=== PATIENT | female | born 1960 | race Caucasian/White ===

== ENCOUNTER 2021-06-21 15:50 | Outpatient (CLI) | payer OTHER, SELFPAY ==
--- NOTE | 2021-06-21 16:05 | XR_ITS ---
WS: [id number] SCREENING DEXA SCAN [employer] CLINICAL INFORMATION: OSTEOPOROSIS COMPARISON: None. FINDINGS: The L1-L4 bone mineral density measures 1.180 g/cm2. This corresponds to a T score score of 0.0 and Z score of 0.7. Left femoral neck bone mineral density measures 1.054 g/cm2. This corresponds to a T score of 0.4 and Z score of 1.0. Right femoral neck bone mineral density measures 1.079 g/cm2. This corresponds to a T score 0.6of and Z score of 1.2. Mean femoral neck bone mineral density measures 1.067 g/cm2. This corresponds to a T score of 0.5 and Z score of 1.1. XR/XR DEXA axial skeleton* 70419 IMPRESSION: Normal bone mineralization. Patient's FRAX calculated 10 year probability for major osteoporotic fracture i s 11.6 % and osteoporotic hip fracture is 0.6%.
== END 2021-06-21 15:51 | disposition home or self-care (01) ==
PROVIDERS: PCP Family Medicine; Visit Provider Family Medicine
DX: M81.0 Age-related osteoporosis without current pathological fracture (principal)
CPT/HCPCS: 77080

== ENCOUNTER 2021-07-02 06:43 | Day surgery (SDC) | payer OTHER, SELFPAY ==
[2021-07-01 07:27] VITALS: BMI 30.2
--- NOTE | 2021-07-02 06:54 | ANES.PREANE2 ---
Pre-Anesthetic Assessment Pre-Anesthetic Assessment: Height/Weight: Height 1.59 m Weight 76.204 kg Preop Diagnosis: screening Proposed Procedure: Operation Date: 07/02/21 08:00 Proposed Procedures p Colonoscopy with poss biopsy poss polpectomy 13320 Z12.11(Not Applicable) - Phi Flores MD Familial anesthetic complications: none Was Beta Khanh taken within 24 hours: N/A Was Clonidine taken within 24 hours: N/A Last intake: > 8 hrs Social: Social History: No alcohol and No tobacco Exam: Pre-Anes Outpt Exam: alert, oriented x 3, clear to auscultation bilaterally and regular rate & rhythm Airway: Cervical ROM: WNL MP: 2 Dentition: Chipped and Other (crown) Anesthetic Plan: ASA status: 1 Anesthesia: MAC Risk of > 500 ml blood loss (7ml/kg in children): No PFSH Anesthesia PFSH: Family History (Updated 07/01/21 @ 07:27 by Kim Villanueva RN) Son Osteosarcoma Diabetes type I Mother Stomach cancer Depression Hypertension Diabetes type 2, controlled Father Lymphoma Hypertension Son No problems noted. Daughter Diabetes type I Social History (Updated 07/01/21 @ 07:27 by Kim Villanueva RN) Smoking and tobacco status: never smoked Alcohol intake: current Current occupational status: employed Data Anesthesia Cardiac Studies: No Data to Display
[2021-07-02 07:10] VITALS: BP 134/82; PULSE 73; RESP 18; TEMP 36.2; O2SAT 100
[2021-07-02] MEDS: sodium chloride 0.9% 1,000 ML 30 ML IV (07:25)
--- NOTE | 2021-07-02 08:24 | P.HP_ITS ---
Providers/Chief Complaint Admitting Physician: Phi Flores Primary Care Provider: Phi Flores MD Chief Complaint: colonoscopy History of Present Illness Neeta Smith is a 61 year old female who presents for a screening colonoscopy. She has no family history or any other increased risk factors. Review of Systems 2 General: Reports: 10 or more systems reviewed and unremarkable except in HPI and below Const: Denies: fever(s) Card: Denies: chest pain or irregular heart rhythm Resp: Denies: dyspnea Medications/Allergies Home Medications Medication Instructions Recorded Confirmed Last Taken Type calcium-magnesium [Calcium And 1 tab PO DAILY 07/01/21 07/02/21 07/01/21 History Magnesium] cetirizine [Zyrtec] 10 mg PO DAILY PRN 07/01/21 07/02/21 07/01/21 History coenzyme Q10 [CoQ-10] 100 mg PO DAILY 07/01/21 07/02/21 07/01/21 History omega-3 fatty acids-fish oil 1 cap PO DAILY 07/01/21 07/02/21 07/01/21 History [[place] 3 Fish Oil] dooxjxa-oslp-jfbiz-oreg-capryl 1 cap PO DAILY 07/01/21 07/02/21 07/01/21 History Allergies Allergy/AdvReac Type Severity Reaction Status Date / Time Penicillins Allergy ALGY-Rash Verified 07/01/21 07:21 Sulfa (Sulfonamide Allergy ALGY-Difficulty Verified 07/01/21 07:21 Antibiotics) Breathing PFSH PFSH: Family History Son Osteosarcoma Diabetes type I Mother Stomach cancer Depression Hypertension Diabetes type 2, controlled Father Lymphoma Hypertension Son No problems noted. Daughter Diabetes type I Social History Smoking and tobacco status: never smoked Alcohol intake: current Current occupational status: employed Vital Signs Vitals Signs: Last Vital Signs Temp 97.1 F L 07/02/21 07:10 Pulse 73 07/02/21 07:10 Resp 18 07/02/21 07:10 BP 134/82 07/02/21 07:10 Pulse Ox 100 07/02/21 07:10 Weight: Weight last 48 hrs Weight 168 lb Physical Exam Const: COMMON NORMALS: no acute distress and patient oriented x3 GENERAL APPEARANCE: cooperative, comfortable and well developed HENMT: COMMON NORMALS: normocephalic and moist oral mucous membranes HEAD & SCALP: normocephalic Chest: COMMONS NORMALS: normal inspection of the chest Resp: COMMON NORMALS: normal respiratory effort and clear to auscultation bilaterally AUSCULTATION: clear to auscultation bilaterally Cardio: COMMON NORMALS: regular rate, regular rhythm, No gallops present (Cardio), No murmurs present (Cardio) and No rub (Cardio) RATE: regular rate RHYTHM: regular rhythm Extremity: COMMON NORMALS: normal to inspection Neuro: COMMON NORMALS: patient oriented x3 and no focal motor deficits Skin: COMMON NORMALS: no rashes or lesions noted GENERAL SKIN EXAM: no rashes or lesions noted A&P Assessment and plan (1) Encounter for screening colonoscopy: The risks have been discussed with the patient including bleeding, and perforation. She has no further questions and wishes to proceed. Status: Acute Coding Level of Care Code Acute Button Sawyer for Shmuel Fwd Diagnoses Encounter for screening colonoscopy Z12.11
[2021-07-02 08:58] VITALS: BP 98/62; PULSE 83; RESP 16; TEMP 36.2; O2SAT 97
--- NOTE | 2021-07-02 17:26 | ANE.PACU2 ---
Inpatient post-anesthesia follow up: Airway intact: Yes Vital signs: Temperature 97.1 F Pulse Rate 83 Respiratory Rate 16 Blood Pressure 98/62 Pulse Oximetry 97 Oxygen Delivery Me thod Room Air Oxygen Flow Rate Fraction of Inspir ed Oxygen Hydration adequate: Yes Nausea and vomiting: No Pain level: 1 Mental status: Baseline
== END 2021-07-02 09:59 | disposition home or self-care (01) ==
PROVIDERS: PCP Family Medicine; Visit Provider Family Medicine
PROC: 0DJD8ZZ Inspection of Lower Intestinal Tract, Via Natural or Artificial Opening Endoscopic (ICD-10-PCS; CPT 45378; principal; 2021-07-02 08:00)
DX: Z12.11 Encounter for screening for malignant neoplasm of colon (principal)
CPT/HCPCS: 12345; 45378; 96360; 96361; J2704; J7030

== ENCOUNTER 2021-08-10 15:25 | Outpatient (CLI) | payer OTHER, SELFPAY ==
--- NOTE | 2021-08-10 15:32 | MM_ITS ---
WS: [id number] BILATERAL DIGITAL SCREENING MAMMOGRAPHY WITH CAD CLINICAL INFORMATION: SCREENING HISTORY: Screening mammogram. No current complaints. COMPARISON: TECHNIQUE: Bilateral CC and MLO views. FINDINGS: Scattered fibroglandular densities bilaterally. No suspicious focal mass, asymmetry, calcifications, or architectural distortion. No evidence of malignancy. MM/[place] [id number] IMPRESSION: BI-RADS: 1-Negative FOLLOW UP: 1 Year Follow-up Recommend return to annual screening mammography.
== END 2021-08-10 15:26 | disposition home or self-care (01) ==
LOC: RADSHAW 15:30
PROVIDERS: PCP Family Medicine; Visit Provider Family Medicine
DX: Z12.31 Encounter for screening mammogram for malignant neoplasm of breast (principal)
CPT/HCPCS: 77067

== ENCOUNTER → 2023-06-24 12:31 | Outpatient (BNVA) | payer OTHER, SELFPAY | PROVIDERS: PCP Family Medicine; Visit Provider Family Medicine | DX: R39.15 Urgency of urination (principal) | CPT/HCPCS: 81000 ==

== ENCOUNTER → 2023-09-20 15:44 | Outpatient (BNVA) | payer OTHER, SELFPAY | PROVIDERS: PCP Family Medicine; Visit Provider Nurse Practitioner | DX: M17.12 Unilateral primary osteoarthritis, left knee; W19.XXXA Unspecified fall, initial encounter | CPT/HCPCS: 20610; 73562; 99204; J1040; J2795; J3301 ==

== ENCOUNTER 2023-10-04 06:00 | Outpatient (CLI) | payer OTHER, SELFPAY | END 2023-10-04 06:01 | LOC: SPT 10-05 10:52 | PROVIDERS: Visit Provider Nurse Practitioner | DX: Z46.89 Encounter for fitting and adjustment of other specified devices (principal); M17.12 Unilateral primary osteoarthritis, left knee | CPT/HCPCS: 97760; L1851 ==

== ENCOUNTER → 2023-12-22 08:37 | Outpatient (BNVA) | payer OTHER, SELFPAY | PROVIDERS: PCP Registered Nurse; Visit Provider Specialist | DX: M17.12 Unilateral primary osteoarthritis, left knee (principal) | CPT/HCPCS: 99213 ==

== ENCOUNTER → 2024-01-24 08:22 | Outpatient (BNVA) | payer OTHER, SELFPAY | PROVIDERS: PCP Registered Nurse; Visit Provider Specialist | DX: M17.12 Unilateral primary osteoarthritis, left knee (principal) | CPT/HCPCS: 73560; 73565; 80053; 81003; 85025; 99213 ==

== ENCOUNTER 2024-01-30 10:11 | Outpatient (CLI) | payer OTHER, SELFPAY ==
--- NOTE | 2024-01-30 11:00 | CT_ITS ---
WS: [id number] CT LEFT KNEE, NONCONTRAST TECHNIQUE: Noncontrast CT of the LEFT knee to include the LEFT hip and ankle SHER. CLINICAL INFORMATION: pre-surgery planning COMPARISON: Radiograph 01/24/2024 DLP: 966.[address] scans at [facility] use at least one of these dose optimization techniques: automated e xposure control; mA and/or kV adjustment per patient size (includes targeted exams where dose is matc hed to clinical indication); or iterative reconstruction. FINDINGS: Advanced tricompartment arthritis LEFT knee worse in the medial joint compartment with [id number] a rticulation and slight subchondral sclerosis. Hypertrophic changes along the joint line. Hypertrophic patella. Small popliteal cyst A few sigmoid diverticuli. Moderate degenerative arthritis sacroiliac joints. Postoperative changes fixation distal fibula and lateral malleolus. 2 screws extending into the dista l tibia. Fracture of the more distal fixation screw without displacement. CT/CT knee LT SHER [id number] IMPRESSION: Fracture of the more distal tibial fixation screw without displacement. This ap pears new since the radiograph 2013. Images obtained for preoperative purposes.
== END 2024-01-30 10:12 | disposition home or self-care (01) ==
LOC: RAD 10:11
PROVIDERS: PCP Registered Nurse; Visit Provider Specialist
DX: Z01.818 Encounter for other preprocedural examination (principal); M17.12 Unilateral primary osteoarthritis, left knee
CPT/HCPCS: 73700

== ENCOUNTER 2024-02-06 12:01 | Observation (INO) | payer OTHER, SELFPAY ==
[2024-02-06] VITALS (15 sets, daily range): BP systolic 105–149; BP diastolic 62–85; PULSE 53–86; RESP 16–20; TEMP 36.2–36.9; O2SAT 93–100; BMI 32.0
[2024-02-06] MEDS: sodium chloride 0.9% 1,000 ML 30 ML IV (06:50)
[2024-02-06] MEDS: acetaminophen 1,000 MG/100 ML PIGGYBACK 400 MG IV ×3 (06:50→21:19)
[2024-02-06] MEDS: gabapentin 300 mg Capsule PO (06:55)
--- NOTE | 2024-02-06 06:58 | P.HPUD_ITS ---
Surgery/Procedure H&P Update DATE OF PROCEDURE: February 06, 2024 DATE H&P PERFORMED: 01/30/24 H&P UPDATE INFORMATION: I have reviewed H&P completed within last 30 days, I have examined patient prior to procedure, No changes to prior documentation and H&P is in [facility] [place] [facility] EMR on date indicated PLANNED PROCEDURE: Operation Date: 02/06/24 08:00 Proposed Procedures p Randall Robot Total Knee Arthroplasty(Left) - Veena Stuart MD Related Problem List Diagnoses (1) Primary osteoarthritis of left knee:
--- NOTE | 2024-02-06 07:30 | ANES.PREANE2 ---
Pre-Anesthetic Assessment Height/Weight: Height 1.57 m Weight 79.379 kg Temp Pulse Resp BP Pulse Ox O2 Del Method 98.4 F 73 18 149/85 96 Room Air 02/06/24 07:14 02/06/24 07:14 02/06/24 07:14 02/06/24 07:14 02/06/24 07:14 02/06/24 07:15 Operation Date: 02/06/24 08:00 Proposed Procedures p Randall Robot Total Knee Arthroplasty(Left) - Veena Stuart MD Familial anesthetic complications: none Was Beta Khnah taken within 24 hours: N/A Was Clonidine taken within 24 hours: N/A Last intake: Intake Last Liquid Date 02/05/24 Last Liquid Time 22:00 Last Solid Date 02/05/24 Last Solid Time 18:00 Social No alcohol Exam alert, oriented x 3, clear to auscultation bilaterally and regular rate & rhythm Airway Submandibular: within normal limits Cervical ROM: within normal limits Mallampati: Class II Dentition: full Musc/skel Osteoarthritis/DJD Anesthetic Plan ASA status: 2 Anesthesia: Regional (specify below) (SAB with left adductor blk) Medications/Allergies Home Medications Medication Instructions Recorded Confirmed Last Taken Type calcium-magnesium 750 mg-465 mg 1 tab PO DAILY 07/01/21 02/05/24 02/02/24 History tablet cetirizine 10 mg tablet (Zyrtec) 10 mg PO DAILY PRN ALLERGIES 07/01/21 02/05/24 02/05/24 History coenzyme Q10 100 mg capsule 100 mg PO DAILY 07/01/21 02/05/24 01/29/24 History (CoQ-10) omega-3 fatty acids-fish oil 684 1 cap PO DAILY 07/01/21 02/05/24 01/29/24 History mg-1,200 mg capsule,delayed release turmeric 100 mg-mariusz 150 1 cap PO DAILY 07/01/21 02/05/24 01/29/24 History mg-olive 50 mg-oreg 150 mg-capryl capsule [employer] Brace #1 ea 09/21/23 01/30/24 Unknown Rx celecoxib 100 mg capsule (Celebrex) 200 mg (2 x 100 mg) PO DAILY #30 01/25/24 02/05/24 01/31/24 Rx caps Allergies Allergy/AdvReac Type Severity Reaction Status Date / Time Penicillins Allergy ALGY-Rash Verified 02/05/24 09:26 Sulfa (Sulfonamide Allergy ALGY-Difficulty Verified 02/05/24 09:26 Antibiotics) Breathing Current Medications Generic Name Dose Route Start Last Admin Trade Name Freq PRN Reason Stop Dose Admin Sodium Chloride 1,000 mls @ 30 mls/hr 02/06/24 06:45 02/06/24 06:50 Sodium Chloride 0.9% IV 02/07/24 06:44 30 mls/hr .Q24H DONNY Administration PFSH Anesthesia Medical History Fall Primary osteoarthritis of left knee Family History Son Osteosarcoma Diabetes mellitus type 1 Mother Stomach cancer Depression Hypertension Diabetes type 2, controlled Father Lymphoma Hypertension Son No problems noted. Daughter Diabetes mellitus type 1 Social History Smoking and tobacco/nicotine status: never used tobacco/nicotine Alcohol intake: current Current occupational status: employed Data Anesthesia Cardiac Studies: No Data to Display
[2024-02-06] MEDS: ceFAZolin 2,000 MG in sodium chloride 0.9% (plus) 50 ML 100 MG IV ×3 (08:28→22:01)
[2024-02-06] MEDS: tranexamic acid 1,000 mg/10mL SDV 1000 MG XX (08:57)
--- NOTE | 2024-02-06 09:03 | ANES.PROC ---
Anesthesia Procedures Procedure/Date: 02/06/24 Nerve Block ^: Nerve Block 1: Main Anesthesia: spinal anesthesia block Time Out Performed: Yes Consent: requested by attending/covering physician, from patient, risks and benefits reviewed and patient agrees to proceed Nerve block location: adductor canal (left) Anesthesia monitors applied: pulse oximetry, EKG, BP cuff and oxygen Nerve block position: supine Anesthetic Used: ropivicaine 0.5% Amount of anesthesia used (mL): 20 Ultrasound used to: recognize landmarks Nerve Stimulator Used?: No Interscalene/Femoral BLK: 4 stimuplex 21 g needle used for position and inplane approach Injection: neg aspiration of heme Patient Tolerated Procedure: well Complications: none
[2024-02-06] MEDS: BUPivacaine 0.5% INJ 30 mL 20 ML INJECTION (09:31)
[2024-02-06] MEDS: BUPivacaine liposome 13.3 mg/mL SDV 10 mL 266 MG INFILTRATI (09:31)
[2024-02-06] MEDS: vancomycin 1,000 MG SDV 3000 MG XX (09:32)
--- NOTE | 2024-02-06 11:14 | XRR_ITS ---
PROCEDURE INFORMATION: Exam: XR Left Knee Exam date and time: 02/06/2024 11:50 AM Age: 63 years old Clinical indication: Device placement; Joint replacement hardware; Prior surgery; Surgery date: Post-operative (0-2 days); Surgery type: Left total knee arthroplasty; Additional info: Status post left total knee arthroplasty, patient in pacu TECHNIQUE: Imaging protocol: Radiologic exam of the left knee. Views: 1 or 2 views. COMPARISON: CT knee LT SHER [id number] 01/30/2024 11:25 AM FINDINGS: Bones/joints: Patient has since undergone placement of left total knee prosthesis that appears in satisfactory position. Bone metal interface is unremarkable. There is no periprosthetic fracture. Remaining visualized osseous structures are unremarkable. Soft tissues: There is generalized soft tissue swelling with air in the soft tissues and overlying surgical radha along the skin surface consistent with recent surgery. XR/XR knee LT 1-2V [id number] IMPRESSION: Recent left total knee replacement in satisfactory position.
--- NOTE | 2024-02-06 11:29 | PM.OP ---
Operative Report Date of procedure: February 06, 2024 Pre-op diagnosis: Severe degenerative osteoarthritis left knee with varus deformity Post-op diagnosis: Severe degenerative osteoarthritis left knee with varus deformity Post-op findings: Severe degenerative osteoarthritis with complete denudement of cartilage and varus deformity Procedure done: Right total knee arthroplasty with Randall guidance Implants: The Leslye total knee system with a size 3 triathlon beaded cruciate retaining femur left, a triathlon titanium tibial component size 3 beaded, a triathlon X3 tibial bearing CS insert size 3 X 10 mm and a beaded triathlon titanium asymmetric patella size 29 x 9 mm Specimens removed/disposition: Bone, disposed of Surgeon: Veena Stuart MD Criminal Investigative Agent: [facility] operating room technicians Anesthesia: Spinal (With MAC, ASA 2) Estimated blood loss (mL): 50 Tourniquet time (min): 0 (Not utilized) IV fluids (mL): 1,400 Urine output (mL): 100 Complications: None Condition: stable Disposition: PACU (Then to floor for postoperative rehabilitation and pain management) Brief History: This 63-year-old woman was evaluated in the office initially and underwent multiple injection treatments to left knee for severe degenerative osteoarthritis of the left knee. Initially, the patient saw Ethel Mcintosh nurse practitioner and injection therapy was undertaken without difficulty. The patient tolerated it well. She then came to see me approximately 3 months later for consideration of injection therapy, but she wished to have total knee arthroplasty during the summer. She was advised that we would need to hold off on injection therapy so that we could proceed early in the summer months with her knee arthroplasty. Risks and complications were discussed with her. Consents were signed and questions were answered. Procedure: The patient was brought to the operating theater, and after undergoing spinal anesthetic, with MAC and with supplemental adductor canal block, ASA 2, the left lower extremity was prepped with Dura-Prep and draped in usual fashion following placement of a tourniquet high on the leg. The leg was then draped free.? Tourniquet was not elevated during the case.? A surgical pause was performed, and at the time of the surgical pause, we confirmed the site and side of surgery. Additionally, we confirmed the appropriate and timely administration of preoperative antibiotics, Ancef 2 g.? The availability of equipment was confirmed, and the patient's identity was verbalized as well. Following the surgical pause, an incision was made centering over the patella continuing proximally and distally as necessary to allow access to the knee joint. Dissection continued through skin and soft tissues using a scalpel. Hemostasis was obtained using electrocautery. The skin incision was followed by a median parapatellar arthrotomy. The leg was extended and the patella was able to be displaced laterally.? Appropriate arrays and markers were placed in appropriate position for use of the Randall.? Preoperative planning had been accomplished and was discussed in detail with the [facility] medical customer service representative.? Intraoperative mapping of the femur and tibia was accomplished after the arrays were placed.? Internal markers were also placed.? Once we had accomplished the Randall mapping, we began the appropriate resections for placement of the prosthesis.? The plan was for a cruciate retaining right total knee arthroplasty. Once appropriate mapping had been accomplished retraction was established using manual retraction by surgical technicians and also the [facility] leg positioner and retractors.? The knee was evaluated.? There was significant osteoarthritic change as well as very minimal flexion contracture as well as varus deformity.? Appropriate bone resection was accomplished using the Randall.? The femur was sized to a size 3.? Following femoral cuts, attention was directed to the tibia.? Osteophytes were removed prior to this portion of the procedure.? We had performed a minimal medial release at the beginning of the procedure to allow for placement of the array.? Proximal tibia was evaluated, and it was felt that appropriate size for the tibia was a size 3.? Tray was noted to fit nicely with good coverage.? Rim fit was accomplished with the size 3. A trial reduction was accomplished after osteophytes have been removed as well as the medial and lateral menisci.? We had removed the anterior cruciate ligament at the beginning of the case and preserved the posterior cruciate ligament.? Trial reduction was accomplished with a size 3 femoral cruciate retaining component, a size 3 tibial tray and a size 3 CS tibial bearing insert which was 9 mm initially which was increased to 10 mm.? Secondary to the balancing of the knee, we elected to place a 10 mm insert for the actual component. Alignment was felt to be appropriate as well.? Trial components were removed after the femur had been drilled.? Prior to removal of the tibial tray which had been pinned in position with appropriate rotation as determined by the Randall plan, we broached the tibia.? Subsequently, the 4 drill holes were made for the prosthetic component.? All trial components were removed, and the wound was irrigated.? Plans were made for insertion of the prosthetic components.? Prior to this, the patella was manually prepared.? After resection of the articular surface with the jogging system, it was measured and measured a 29 mm patella.? We resected approximately 8 mm of patella.? Patellar height was restored with the patellar component. Once again, the wound was irrigated.? The Tritanium tibia was impacted into position.? The beaded femur was then impacted into position in a cementless fashion. The CS tibial insert was placed prior to placement of the femoral component. The patella was pressed into position with a patellar clamp.? Exparel was injected about the components deep and superficially.? The knee was then copiously irrigated with betadine and saline and suctioned dry. Attention was then directed to closure. Closure was accomplished with 0 Vicryl in the fascial tissues.? The suture line of 0 Vicryl was supplemented with strata fix, #1, with a running stitch from proximal to distal and a second running stitch from distal to proximal.? This was followed by Surgiflo and vancomycin powder.? Following this, a 2-0 Monocryl was used in the subcutaneous tissues, and the skin was closed with 3-0 Strata fix.? Care was taken to assure an excellent subcutaneous as well as skin closure.? A sterile dressing was then placed consisting of Dermabond Prineo, OpSite, ABD, sterile soft roll, and an Josué wrap including over the foot. The patient was returned the Recovery Room in a satisfactory condition. X-rays were obtained and reviewed there.? The patient will be discharged to the floor for postoperative rehabilitation and pain management. Related Problem List Diagnoses (1) Primary osteoarthritis of left knee:
[2024-02-06] MEDS: CELEcoxib 200 mg Capsule PO ×2 (13:06→21:18)
[2024-02-06] MEDS: chlorhexidine gluconate 0.12% Btl 473 mL 30 ML MUCOUS MEM ×3 (13:06→21:20)
--- NOTE | 2024-02-06 14:09 | ANE.PACU2 ---
Inpatient post-anesthesia follow up: Airway intact: Yes Vital signs: Temperature 97.6 F Pulse Rate 86 Respiratory Rate 16 Blood Pressure 131/65 Pulse Oximetry 96 Oxygen Delivery Me thod Room Air Oxygen Flow Rate Fraction of Inspir ed Oxygen Hydration adequate: Yes Nausea and vomiting: No Pain level: 1 Mental status: Baseline
[2024-02-06] MEDS: oxyCODONE 5 mg IR Tab/Cap PO ×2 (14:33→19:16)
[2024-02-06] MEDS: calcium carbonate 500 mg Chew Tablet 1000 MG PO (18:01)
[2024-02-06] MEDS: sennosides-docusate Tablet 2 TAB PO (18:01)
[2024-02-06] MEDS: mupirocin oint 22 gm 1 APPLIC NASAL (18:01)
[2024-02-06] MEDS: iron polysaccharide complex 150 mg Capsule PO (18:01)
[2024-02-06] MEDS: HYDROcodone-acetaminophen 10-325 mg Tablet 1 TAB PO (21:40)
[2024-02-07] MEDS: HYDROcodone-acetaminophen 10-325 mg Tablet 1 TAB PO ×2 (01:41→05:52)
[2024-02-07 04:00] VITALS: BP 124/73; PULSE 77; RESP 17; TEMP 36.6; O2SAT 91
[2024-02-07 06:06] LABS: Anion Gap 12.3 (5-19); Blood Urea Nitrogen 10 mg/dL (8-23); Calcium 8.2 mg/dL (8.5-10.5); Carbon Dioxide 26 mmol/L (22-29); Chloride 98 mmol/L (98-107); Creatinine Clr Calc Pharmacy 123.2922; Glucose 128 mg/dL (65-115); Osmolality Calculated 275 mOsm/kg (285-295); Potassium 4.3 mmol/L (3.5-5.1); Sodium 132 mmol/L (136-145)
[2024-02-07] MEDS: ceFAZolin 2,000 MG in sodium chloride 0.9% (plus) 50 ML 100 MG IV (06:11)
[2024-02-07 06:41] LABS: Basophils % 0.1 %; Eosinophils # 0.1 10^3/uL (0.0-0.8); Eosinophils % 0.8 %; Hematocrit 34.3 % (36-47); Lymphocytes # 0.7 10^3/uL (0.8-4.8); Lymphocytes % 9.7 %; Mean Corpuscular HGB Conc 32.9 g/dL (30-55); Mean Corpuscular Hemoglobin 29.9 pg (27-33); Mean Corpuscular Volume 90.7 fl (85-98); Mean Platelet Volume 9.8 fL (7.4-10.4); Monocytes # 0.6 10^3/uL (0.2-0.9); Monocytes % 7.8 %; Neutrophils # 5.95 10^3/uL (1.8-7.7); Neutrophils % 81.3 %; Nucleated Red Blood Cells % 0 %; Platelet Count 259 10^3/cmm (157-399); Red Blood Count 3.78 10^6/uL (3.85-5.65); White Blood Count 7.32 10^3/uL (3.29-11.43)
[2024-02-07 08:00] VITALS: BP 126/72; PULSE 76; RESP 16; TEMP 36.5; O2SAT 93
[2024-02-07] MEDS: aspirin 325 mg EC Tablet PO (08:45)
[2024-02-07] MEDS: cholecalciferol (vitamin D3) 1,000 unit Tablet 1000 UNIT PO (08:45)
[2024-02-07] MEDS: multivitamin therapeutic Tablet 1 TAB PO (08:45)
[2024-02-07] MEDS: calcium carbonate 500 mg Chew Tablet 1000 MG PO (08:45)
[2024-02-07] MEDS: sennosides-docusate Tablet 2 TAB PO (08:45)
[2024-02-07] MEDS: iron polysaccharide complex 150 mg Capsule PO (08:45)
[2024-02-07] MEDS: CELEcoxib 200 mg Capsule PO (08:47)
[2024-02-07] MEDS: TRAMadol 50 mg Tablet PO (09:35)
[2024-02-07 12:00] VITALS: BP 144/84; PULSE 66; RESP 16; TEMP 36.4; O2SAT 96
--- NOTE | 2024-02-07 13:29 | P.DS_ITS ---
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 using cement: Status: Acute Permanent problem details: Date of procedure: February 06, 2024 Diagnosis: Severe degenerative osteoarthritis left knee with varus deformity Procedure done: Right total knee arthroplasty with Randall guidance Implants: The Leslye total knee system with a size 3 triathlon beaded cruciate retaining femur left, a triathlon titanium tibial component size 3 beaded, a triathlon X3 tibial bearing CS insert size 3 X 10 mm and a beaded triathlon titanium asymmetric patella size 29 x 9 mm (2) Primary osteoarthritis of left knee: Status: Acute Reason for Visit Reason for Visit: M17.12 Brief History: This 63-year-old woman was evaluated in the office initially and underwent multiple injection treatments to left knee for severe degenerative osteoarthritis of the left knee. Initially, the patient saw Ethel Mcintosh, nurse practitioner and injection therapy was undertaken without difficulty. The patient tolerated it well. She then came to see me approximately 3 months later for consideration of injection therapy, but she wished to have total knee arthroplasty during the summer. She was advised that we would need to hold off on injection therapy so that we could proceed early in the summer months with her knee arthroplasty. Risks and complications were discussed with her. Consents were signed and questions were answered. Hospital Course Hospital Course Patient was admitted under observation status following left total knee arthroplasty with Randall guidance. Initially, the patient had some complaints with pain control. Oxycodone was not helping her, hydrocodone made her too anxious, but tramadol appeared to take care of her pain appropriately. Patient worked with physical therapy. She was independent and felt to be safe for transfer to home. Therefore, the patient was discharged home to follow-up with me in the office as previously scheduled. At the time of discharge, there was no evidence of DVT. Dressings were dry and intact. Physical Exam Const: COMMON NORMALS: no acute distress, average body habitus, patient maddison ented x3 and alert GENERAL APPEARANCE: cooperative and comfortable ORIENTATION/CONSCIOUSNESS: Yes awake HENMT: COMMON NORMALS: normocephalic and atraumatic HEAD & SCALP: normocephalic and atraumatic Eye: GENERAL EYE: appearance normal, both eyes and all related structures Chest: COMMONS NORMALS: normal inspection of the chest Resp: COMMON NORMALS: normal respiratory effort EFFORT & INSPECTION: Yes able to speak in complete sentences and Yes symmetric chest movement Extremity: LEFT LOWER EXTREMITY: Yes knee joint (Dressings are dry and intact) Left knee: Yes inspection (Minimal swelling no ecchymosis), Yes ROM (Able to straight leg raise) and Yes neurovascular exam (Intact distally with no evidence of DVT) Neuro: COMMON NORMALS: patient oriented x3 SENSORIUM/ORIENTATION: Yes alert Psych: COMMON NORMALS: mental status grossly normal APPEARANCE: Yes grossly normal ATTITUDE: Yes calm and Yes engaged ATTENTION/CONCENTRATION: Yes attention grossly intact Skin: COMMON NORMALS: no rashes or lesions noted GENERAL SKIN EXAM: no rashes or lesions noted Urinary Catheter Management: Gunderson: Cath Placed During This Visit: yes, but has since been removed by the nurse Reason for Continuing Indwelling Catheter: Decision to DC Catheter Urinary Catheter Date of Insertion: 02/06/24 Urinary Catheter Time of Insertion: 08:45 Date Urinary Catheter Removed: 02/07/24 Time Urinary Catheter Discontinued: 06:22 Discharge Data Studies Completed and Pending Completed Studies During Hospitalization Category Date Time Status XR knee LT 1-2V 60733 Routine Exams 02/06/24 11:14 Completed Radiology Impressions Knee X-Ray 02/06/24 11:14 IMPRESSION: Recent left total knee replacement in satisfactory position. Laboratory Results WBC 7.32 10^3/uL (3.29-11.43) 02/07/24 05:03 RBC 3.78 10^6/uL (3.85-5.65) L 02/07/24 05:03 Hgb 11.30 g/dL (11.27-16.99) 02/07/24 05:03 Hct 34.3 % (36-47) L 02/07/24 05:03 MCV 90.7 fl (85-98) 02/07/24 05:03 MCH 29.9 pg (27-33) 02/07/24 05:03 MCHC 32.9 g/dL (30-55) 02/07/24 05:03 RDW 13.0 % (12.1-15.1) 02/07/24 05:03 Plt Count 259 10^3/cmm (157-399) 02/07/24 05:03 MPV 9.8 fL (7.4-10.4) 02/07/24 05:03 Neut % (Auto) 81.3 % 02/07/24 05:03 Lymph % (Auto) 9.7 % 02/07/24 05:03 [place] % (Auto) 7.8 % 02/07/24 05:03 Eos % (Auto) 0.8 % 02/07/24 05:03 Baso % (Auto) 0.1 % 02/07/24 05:03 Neut # (Auto) 5.95 10^3/uL (1.8-7.7) 02/07/24 05:03 Lymph # (Auto) 0.7 10^3/uL (0.8-4.8) L 02/07/24 05:03 [place] # (Auto) 0.6 10^3/uL (0.2-0.9) 02/07/24 05:03 Eos # (Auto) 0.1 10^3/uL (0.0-0.8) 02/07/24 05:03 Baso # (Auto) 0.0 10^3/uL (0.0-0.1) 02/07/24 05:03 Nucleated RBC % (auto) 0 % 02/07/24 05:03 Nucleated RBCs # 0.0 /100WBC 02/07/24 05:03 Sodium 132 mmol/L (136-145) L 02/07/24 05:03 Potassium 4.3 mmol/L (3.5-5.1) 02/07/24 05:03 Chloride 98 mmol/L (98-107) 02/07/24 05:03 Carbon Dioxide 26 mmol/L (22-29) 02/07/24 05:03 Anion Gap 12.3 (5-19) 02/07/24 05:03 BUN 10 mg/dL (8-23) 02/07/24 05:03 Creatinine 0.5 mg/dL (0.5-0.9) 02/07/24 05:03 GFR Calculation 125.0 mL/min (90-130) 02/07/24 05:03 Glucose 128 mg/dL (65-115) H 02/07/24 05:03 Calculated Osmolality 275 mOsm/kg (285-295) L 02/07/24 05:03 Calcium 8.2 mg/dL (8.5-10.5) L 02/07/24 05:03 Vitals Last Vital Signs Temp 97.5 F L 02/07/24 12:00 Pulse 66 02/07/24 12:00 Resp 16 02/07/24 12:00 BP 144/84 02/07/24 12:00 Pulse Ox 96 02/07/24 12:00 O2 Del Method Room Air 02/07/24 08:00 Discharge Plan Discharge Patient Disposition: Home Health Service Condition: Stable Prescriptions: New acetaminophen 500 mg Tablet 1,000 mg PO Q8H 15 Days Qty: 90 0RF aspirin 325 mg Tablet,Delayed Release (Dr/Ec) 325 mg PO DAILY 30 Days Qty: 0 0RF celecoxib 200 mg Capsule 200 mg PO BID@1000,2200 30 Days Qty: 60 0RF tramadol 50 mg Tablet 50 - 100 mg PO Q6H PRN (Reason: Moderate Pain) 7 Days Qty: 50 0RF Continued cetirizine [Zyrtec] 10 mg Tablet 10 mg PO DAILY PRN (Reason: ALLERGIES) calcium-magnesium 750-465 mg Tablet 1 tab PO DAILY coenzyme Q10 [CoQ-10] 100 mg Capsule 100 mg PO DAILY omega-3 fatty acids-fish oil 684-1,200 mg Capsule,Delayed Release(Dr/Ec) 1 cap PO DAILY zajeudac-uvst-njxte-oreg-capry 100 mg-150 mg- 50 mg-150 mg Capsule 1 cap PO DAILY Held celecoxib [Celebrex] 100 mg capsule 200 mg PO DAILY Qty: 30 0RF Hold Instructions: Resume on 03/08/24. Decrease to 1 tablet/day after 1 month Discontinued (DME) Medial Planning Associate Brace See Rx Instructions .Route .MEDSUPPLY Qty: 1 0RF Rx Instructions: As directed Discharge Orders: Discharge Order (Routine); Ordered 02/07/24 Ordered By: Veena Stuart Referrals: [facility]) [Outside] Veena Stuart MD [Physician] - 02/28/24 1:15 pm Discharge Diet: Advance as tolerated, Usual diet and As Directed Discharge Activity: Increase activity as tolerated, Limit activity as instructed, Use walker/crutches as instructed and As per PT/OT instructions Patient Instructions: Tramadol (By mouth), Celecoxib (By mouth), Total Knee Replacement (GEN), Joint Replacement Stoplight, Opioid Safety Activity Restrictions/Additional Instructions: Weightbearing as tolerated. Range of motion, strengthening, and gait training per physical therapy. Keep your clear plastic dressing in place until 2 weeks following surgery, at that time you may remove it. You may shower with or without the dressing. Do not soak your knee in water. Discharge Attestations Time Spent in Discharge Care*: greater than 30 min Specific Discharge Activities: educating patient, documenting/other paperwork and evaluating patient/reviewing data Quality Metrics Clinical Quality Measures [ No reported AMI, CVA or VTE this stay] Coding Level of Care Code Acute Code for Chg Fwd Diagnoses Status post total left knee replacement not using cement Z96.652 Primary osteoarthritis of left knee M17.12
[2024-02-07 15:15] VITALS: BP 144/84; PULSE 66; RESP 16; TEMP 36.4; O2SAT 96
== END 2024-02-07 15:15 | disposition home health service (06) ==
LOC: MEDSURG 12:02
PROVIDERS: Admitting Provider Specialist; PCP Registered Nurse; Visit Provider Specialist
PROC: 8E0Y0CZ Robotic Assisted Procedure of Lower Extremity, Open Approach (ICD-10-PCS; CPT 27447; principal; 2024-02-06 08:00)
DX: M17.12 Unilateral primary osteoarthritis, left knee (principal)
CPT/HCPCS: 20985; 27447; 36415; 51702; 73560; 80048; 85025; 97110; 97116; 97162; 97165; 97530; C1776; C9290; G0378; J0131; J0690; J2250; J2704; J2795; J3010; J3370; J3490; J7030

== ENCOUNTER 2024-02-27 11:23 | Outpatient (RCR) | payer OTHER, SELFPAY | END 2024-03-27 23:59 | disposition home or self-care (01) | LOC: SPT 11:23 | PROVIDERS: PCP Registered Nurse; Visit Provider Specialist | DX: Z47.1 Aftercare following joint replacement surgery (principal); Z96.652 Presence of left artificial knee joint | CPT/HCPCS: 97110; 97161 ==

== ENCOUNTER → 2024-02-28 13:45 | Outpatient (BNVA) | payer OTHER, SELFPAY | PROVIDERS: PCP Registered Nurse; Visit Provider Nurse Practitioner | DX: Z96.652 Presence of left artificial knee joint (principal); M17.12 Unilateral primary osteoarthritis, left knee | CPT/HCPCS: 73560; 73565 ==

== ENCOUNTER 2024-03-28 06:00 | Outpatient (RCR) | payer OTHER, SELFPAY | END 2024-04-27 23:59 | disposition home or self-care (01) | LOC: SPT 06:00 | PROVIDERS: PCP Registered Nurse; Visit Provider Specialist | DX: Z47.1 Aftercare following joint replacement surgery (principal); Z96.652 Presence of left artificial knee joint | CPT/HCPCS: 97110 ==

== ENCOUNTER → 2024-04-10 14:43 | Outpatient (BNVA) | payer OTHER, SELFPAY | PROVIDERS: PCP Registered Nurse; Visit Provider Nurse Practitioner | DX: Z96.652 Presence of left artificial knee joint (principal); M11.261 Other chondrocalcinosis, right knee | CPT/HCPCS: 73560; 73565 ==

== ENCOUNTER → 2025-02-07 10:26 | Outpatient (BNVA) | payer OTHER, SELFPAY | PROVIDERS: PCP Registered Nurse; Visit Provider Nurse Practitioner | DX: Z96.652 Presence of left artificial knee joint (principal); M62.81 Muscle weakness (generalized) | CPT/HCPCS: 73560; 73565 ==